=== PATIENT | female | born 1950 | race Caucasian/White ===

== ENCOUNTER 2024-11-10 13:13 | Inpatient (IN) | payer BC ==
[~2024-11-10] VITALS: Ht 147.3 cm; Wt 75.6 kg
[2024-11-10 14:31] VITALS: BP 135/84; PULSE 67; RESP 12; TEMP 98.2; O2SAT 94
[2024-11-10 15:38] VITALS: RESP 12; O2SAT 94
[2024-11-10] MEDS ORDERED: QUET300T2 PO (16:43)
[2024-11-10 19:00] VITALS: RESP 20; O2SAT 94
[2024-11-10 20:00] VITALS: BP 139/80; PULSE 79; RESP 20; TEMP 97.7; O2SAT 94
[2024-11-10] MEDS ORDERED: quetiapine 100mg tablet PO SCH ×2 (20:00→21:00)
[2024-11-10] MEDS ORDERED: ALPRAZolam 0.5mg tablet PO SCH (21:00)
[2024-11-10] MEDS ORDERED: QUEtiapine 25mg tablet PO SCH (21:00)
[2024-11-10] MEDS: quetiapine 100mg tablet PO SCH (23:05)
[2024-11-10] MEDS: gabapentin 300mg capsule PO SCH (23:22)
[2024-11-10] MEDS: divalproex sod 250mg ER (24-hour) tablet PO SCH (23:22)
[2024-11-10] MEDS: ALPRAZolam 0.5mg tablet PO SCH (23:23)
[2024-11-11] MEDS: levoTHYROXINE 75mcg tablet PO SCH (07:00)
[2024-11-11 07:32] VITALS: BP 132/64; PULSE 70; RESP 18; TEMP 97.4; O2SAT 91
[2024-11-11 07:59] VITALS: RESP 18; O2SAT 91
[2024-11-11] MEDS: HYDROchlorothiazide 25mg tablet PO SCH (08:00)
[2024-11-11] MEDS: divalproex 250mg tablet, delayed-release PO SCH (08:00)
[2024-11-11] MEDS: famotidine 20mg tablet PO SCH (08:00)
[2024-11-11] MEDS: venlafaxine XR 75mg capsule (Q24H) PO SCH (08:00)
[2024-11-11] MEDS ORDERED: magnesium hydroxide 30ml (MOM) UD suspension PO PRN (08:00)
[2024-11-11] MEDS ORDERED: acetaminophen 325mg tablet PO PRN ×2 (08:00)
[2024-11-11] MEDS ORDERED: venlafaxine XR 75mg capsule (Q24H) PO SCH (08:00)
[2024-11-11] MEDS: quetiapine 100mg tablet PO SCH (08:00)
[2024-11-11 19:00] VITALS: RESP 18; TEMP 97.8; O2SAT 93
[2024-11-11] MEDS: OLANZAPINE 5 MG TABLET PO SCH (21:00)
[2024-11-12] MEDS: QUEtiapine 25mg tablet PO ONE (03:58)
[2024-11-12] MEDS: loperamide 2mg capsule PO PRN (03:59)
[2024-11-12] MEDS: ibuprofen 200mg tablet PO PRN (03:59)
[2024-11-12] MEDS ORDERED: hydrOXYzine 25 MG tablet PO ONE (04:10)
[2024-11-12 07:00] VITALS: RESP 18; O2SAT 96
[2024-11-12 08:00] VITALS: BP 108/80; PULSE 73; RESP 18; TEMP 96.3; O2SAT 96
[2024-11-12 08:17] LABS: BASOPHILS % (AUTO) 0.6 % (0-1); EOSINOPHILS # (AUTO) 0.1 X10'3 (0-0.9); EOSINOPHILS % (AUTO) 1.2 % (0-6); HEMATOCRIT 35.2 % (35.0-45.0); HEMOGLOBIN 11.8 g/dl (12.0-16.0); LYMPHOCYTES # (AUTO) 0.9 X10'3 (1.1-4.8); LYMPHOCYTES % (AUTO) 13.5 % (21-51); MEAN CORPUSCULAR HEMOGLOBIN 31.6 PG (27.0-31.0); MEAN CORPUSCULAR HGB CONC 33.6 g/dL (33.0-36.5); MEAN CORPUSCULAR VOLUME 94.1 FL (78-98); MEAN PLATELET VOLUME 7.3 FL (7.4-10.4); MONOCYTES # (AUTO) 0.8 X10'3 (0-0.9); MONOCYTES % (AUTO) 11.4 % (2-12); NEUTROPHILS # (AUTO) 4.9 X10'3 (1.8-7.7); NEUTROPHILS % (AUTO) 73.3 % (42-75); PLATELET COUNT 185 X10'3 (140-440); RED BLOOD COUNT 3.75 X10'6 (4.20-5.60); RED CELL DISTRIBUTION WIDTH 15.5 % (11.5-14.5); WHITE BLOOD COUNT 6.7 X10'3 (4.5-11.0)
[2024-11-12 08:43] LABS: ALBUMIN 3.1 G/DL (3.4-5.0); ANION GAP 6 (8-16); BLOOD UREA NITROGEN 35 MG/DL (7-18); BUN/CREATININE RATIO 40.2 (10.0-20.0); CALCIUM 8.9 MG/DL (8.5-10.1); CHLORIDE 105 MMOL/L (99-107); CHOL/HDL RATIO 2.2 (0.00-4.99); CHOLESTEROL 192 MG/DL (0-200); CREATININE 0.87 MG/DL (0.40-0.90); GLUCOSE 116 MG/DL (70-104); HDL CHOLESTEROL 89 MG/DL (35-60); LDL CHOLESTEROL 78 MG/DL (50-100); POTASSIUM 4.2 MMOL/L (3.5-5.1); SODIUM 139 MMOL/L (135-145); THYROID STIMULATING HORMONE 2.11 ulU/ml (0.34-4.50); TOTAL CARBON DIOXIDE 27.6 MMOL/L (24-32); TRIGLYCERIDES 212 MG/DL (20-135); eCRCL 36 ML/MIN; eGFR 63 ML/MIN
[2024-11-12 09:05] LABS: HEMOGLOBIN A1C 5.6 % (4.5-6.2)
[2024-11-12 19:00] VITALS: BP 156/63; PULSE 79; RESP 16; TEMP 98.2; O2SAT 95
[2024-11-12] MEDS: traZODone 50mg tablet PO SCH (20:42)
[2024-11-12] MEDS: mag hydrox/Alum hydrox/simeth 30ml oral suspension PO PRN (21:47)
[2024-11-12 23:15] VITALS: RESP 16; O2SAT 95
[2024-11-13 07:00] VITALS: RESP 14; O2SAT 95
[2024-11-13 08:00] VITALS: BP 147/77; PULSE 60; RESP 14; TEMP 96.7; O2SAT 95
[2024-11-13 19:00] VITALS: RESP 16; O2SAT 92
[2024-11-13 19:50] VITALS: BP 166/78; PULSE 76; RESP 16; TEMP 97.1; O2SAT 92
[2024-11-13] MEDS: OLANZapine 5mg rapidly disint. tablet PO ONE (22:29)
[2024-11-14 07:00] VITALS: RESP 14; O2SAT 96
[2024-11-14 08:00] VITALS: BP 142/62; PULSE 71; RESP 14; TEMP 97.8; O2SAT 96
[2024-11-14] MEDS: OLANZapine 2.5MG tablet PO ONE (13:30)
[2024-11-14] MEDS: LORazepam 1 MG tablet PO ONE (13:30)
[2024-11-14] MEDS: LORazepam 2 mg/ml vial IM ONE (15:43)
[2024-11-14] MEDS: diphenhydrAMINE 50 mg/ml inj IM ONE (15:44)
[2024-11-14] MEDS: haloperidol lactate 5mg/ml inj IM ONE (15:44)
[2024-11-14] MEDS: LORazepam 2 mg/ml vial ONE (16:12)
[2024-11-14] MEDS: diphenhydrAMINE 50 mg/ml inj ONE (16:13)
[2024-11-14] MEDS: divalproex 250mg tablet, delayed-release PO SCH (22:53)
[2024-11-15 07:00] VITALS: BP 165/73; PULSE 73; RESP 12; TEMP 98.5; O2SAT 92
[2024-11-15 19:31] VITALS: BP 146/90; PULSE 72; RESP 18; TEMP 97.2; O2SAT 96
[2024-11-15] MEDS: HYDROcodone/acetaminophen 10/325mg tab PO PRN (20:48)
[2024-11-16 07:00] VITALS: BP 151/79; PULSE 70; RESP 16; TEMP 97.8; O2SAT 95
[2024-11-16 19:00] VITALS: RESP 18; O2SAT 92
[2024-11-16 19:27] VITALS: BP 141/73; PULSE 79; RESP 18; TEMP 98.1; O2SAT 92
[2024-11-17 07:00] VITALS: RESP 12; O2SAT 98
[2024-11-17 08:00] VITALS: BP 156/93; PULSE 85; RESP 12; TEMP 98.5; O2SAT 98
[2024-11-17] MEDS: OLANZapine 5mg rapidly disint. tablet PO ONE (13:55)
[2024-11-17 19:00] VITALS: RESP 20; O2SAT 93
[2024-11-17 20:00] VITALS: BP 153/90; PULSE 80; RESP 20; TEMP 98.1; O2SAT 93
[2024-11-17] MEDS: venlafaxine XR 75mg capsule (Q24H) PO SCH (20:00)
[2024-11-17] MEDS: OLANZapine 5mg rapidly disint. tablet PO SCH (21:00)
[2024-11-17] MEDS: QUEtiapine 25mg tablet PO ONE (21:10)
[2024-11-17] MEDS: quetiapine 100mg tablet PO ONE (21:16)
[2024-11-18 04:28] VITALS: RESP 16
[2024-11-18 04:29] VITALS: RESP 16
[2024-11-18] MEDS: LORazepam 2 mg/ml vial ONE (04:31)
[2024-11-18] MEDS: haloperidol lactate 5mg/ml inj ONE (04:32)
[2024-11-18] MEDS: diphenhydrAMINE 50 mg/ml inj ONE (04:32)
[2024-11-18 07:00] VITALS: RESP 16; O2SAT 96
[2024-11-18 08:00] VITALS: BP 168/87; PULSE 68; RESP 16; TEMP 96.3; O2SAT 96
[2024-11-18 19:00] VITALS: RESP 18
[2024-11-18 19:23] VITALS: BP 153/77; PULSE 76; RESP 18; TEMP 98.7; O2SAT 92
[2024-11-18] MEDS: gabapentin 300mg capsule PO SCH (20:06)
[2024-11-18] MEDS: guaiFENesin 200 MG/10 ML oral syrup UD cup PO PRN (22:56)
[2024-11-19 07:00] VITALS: RESP 12; O2SAT 96
[2024-11-19 08:00] VITALS: BP 151/81; PULSE 78; RESP 12; TEMP 97.9; O2SAT 96
[2024-11-19 08:53] LABS: CHOL/HDL RATIO 2.1 (0.00-4.99); CHOLESTEROL 167 MG/DL (0-200); HDL CHOLESTEROL 78 MG/DL (35-60); LDL CHOLESTEROL 65 MG/DL (50-100); TRIGLYCERIDES 60 MG/DL (20-135)
[2024-11-19 19:00] VITALS: RESP 17; O2SAT 97
[2024-11-19] MEDS: guaiFENesin 200 MG/10 ML oral syrup UD cup PO ONE (19:56)
[2024-11-19 20:00] VITALS: BP 140/80; PULSE 86; RESP 17; TEMP 98; O2SAT 97
[2024-11-20] MEDS: guaiFENesin 200 MG/10 ML oral syrup UD cup PO PRN (02:14)
[2024-11-20 07:00] VITALS: RESP 16; O2SAT 95
[2024-11-20 08:00] VITALS: BP 180/88; PULSE 81; RESP 16; TEMP 98; O2SAT 95
[2024-11-20 19:00] VITALS: RESP 16; O2SAT 92
[2024-11-20 19:41] VITALS: BP 171/80; PULSE 73; RESP 16; TEMP 98.4; O2SAT 92
[2024-11-20] MEDS: sennosides/docusate sodium tablet PO SCH (20:26)
[2024-11-21 07:00] VITALS: RESP 16; O2SAT 94
[2024-11-21 07:43] VITALS: BP 180/82; PULSE 75; RESP 16; TEMP 97.9; O2SAT 94
[2024-11-21] MEDS: losartan 50mg tablet PO SCH (08:18)
[2024-11-21 11:51] VITALS: BP 131/72; PULSE 76
[2024-11-21 19:00] VITALS: RESP 18; O2SAT 93
[2024-11-21 20:00] VITALS: BP 155/84; PULSE 82; RESP 18; TEMP 98.2; O2SAT 93
[2024-11-22 07:00] VITALS: BP 144/76; PULSE 73; RESP 16; TEMP 97.6; O2SAT 94
[2024-11-22] MEDS: haloperidol 5mg tablet PO ONE (11:57)
[2024-11-22 19:00] VITALS: RESP 22; O2SAT 94
[2024-11-22 20:00] VITALS: BP 170/89; PULSE 94; RESP 22; TEMP 97.6; O2SAT 94
[2024-11-22] MEDS: haloperidol 5mg tablet PO SCH (21:00)
[2024-11-23 07:00] VITALS: RESP 16; O2SAT 92
[2024-11-23 08:00] VITALS: BP 125/75; PULSE 75; RESP 16; TEMP 97.4; O2SAT 92
[2024-11-23] MEDS: haloperidol 5mg tablet PO SCH (08:25)
[2024-11-23 19:00] VITALS: RESP 14; O2SAT 93
[2024-11-23 20:00] VITALS: BP 128/59; PULSE 67; RESP 14; TEMP 98.2; O2SAT 93
[2024-11-23] MEDS: benzonatate 100mg capsule PO PRN (20:43)
[2024-11-24 07:00] VITALS: RESP 18; O2SAT 92
[2024-11-24 08:00] VITALS: BP 126/71; PULSE 72; RESP 18; TEMP 97.2; O2SAT 92
[2024-11-24] MEDS: LORazepam 1 MG tablet PO ONE (16:12)
[2024-11-24 19:00] VITALS: RESP 14
[2024-11-24 20:00] VITALS: BP 107/74; PULSE 74; RESP 14; TEMP 98.2; O2SAT 91
[2024-11-25 07:30] VITALS: BP 168/90; PULSE 60; RESP 18; TEMP 96.4; O2SAT 93
[2024-11-25 08:00] VITALS: RESP 18
[2024-11-25 19:00] VITALS: RESP 20
[2024-11-25 19:30] VITALS: PULSE 70; RESP 16; O2SAT 96
[2024-11-25] MEDS: budesonide 0.5mg/2ml UD nebule IH SCH (19:30)
[2024-11-25 19:35] VITALS: PULSE 71; RESP 16
[2024-11-25 20:00] VITALS: BP 142/74; PULSE 60; RESP 20; TEMP 98.8; O2SAT 90
[2024-11-26 07:30] VITALS: BP 167/98; PULSE 16; RESP 16; TEMP 97.4; O2SAT 96
[2024-11-26 08:00] VITALS: RESP 16; O2SAT 96
[2024-11-26 09:25] VITALS: PULSE 84; RESP 16; O2SAT 98
[2024-11-26 09:30] VITALS: PULSE 81; RESP 16
[2024-11-26 19:00] VITALS: RESP 15; O2SAT 93
[2024-11-26 20:00] VITALS: BP 170/85; PULSE 93; RESP 15; TEMP 98.2; O2SAT 93
[2024-11-27 07:30] VITALS: BP 174/96; PULSE 77; RESP 14; TEMP 97.6; O2SAT 91
[2024-11-27 08:00] VITALS: RESP 14; O2SAT 91
[2024-11-27 19:00] VITALS: RESP 20; O2SAT 97
[2024-11-27 19:34] VITALS: BP 140/86; PULSE 88; RESP 20; TEMP 98.7; O2SAT 93
[2024-11-27] MEDS: OLANZapine 5mg rapidly disint. tablet PO ONE (19:55)
[2024-11-27] MEDS: diphenhydrAMINE 50 mg/ml inj IM ONE (22:21)
[2024-11-27] MEDS: haloperidol lactate 5mg/ml inj IM ONE (22:22)
[2024-11-27] MEDS: LORazepam 2 mg/ml vial IM ONE (22:22)
[2024-11-28] VITALS (7 sets, daily range): BP systolic 132–174; BP diastolic 71–85; PULSE 67–84; RESP 14–20; TEMP 97.2–97.6; O2SAT 92–96
[2024-11-28] MEDS: albuterol 2.5 MG/3 ML nebule NEB PRN (19:58)
[2024-11-28] MEDS: amLODIPine 5mg tablet PO ONE (21:53)
[2024-11-29] VITALS (8 sets, daily range): BP systolic 125–157; BP diastolic 50–74; PULSE 74–107; RESP 17–20; TEMP 97.3–97.9; O2SAT 89–94
[2024-11-30 07:00] VITALS: RESP 16; O2SAT 92
[2024-11-30 08:00] VITALS: BP 132/66; PULSE 77; RESP 16; TEMP 97.3; O2SAT 92
[2024-11-30 09:47] VITALS: PULSE 81; RESP 18; O2SAT 89
[2024-11-30 09:55] VITALS: PULSE 88; RESP 16
[2024-11-30 19:00] VITALS: RESP 16; O2SAT 94
[2024-11-30 20:00] VITALS: BP 124/73; PULSE 69; RESP 16; TEMP 97.3; O2SAT 94
[2024-11-30] MEDS: nystatin 15 GM powder TP SCH (20:00)
[2024-12-01] VITALS (7 sets, daily range): BP systolic 155–176; BP diastolic 68–83; PULSE 75–93; RESP 15–20; TEMP 96.7–97.8; O2SAT 92–93
[2024-12-02 07:30] VITALS: BP 151/82; PULSE 93; RESP 18; TEMP 96.7
[2024-12-02 08:00] VITALS: RESP 18; O2SAT 93
[2024-12-02 18:20] VITALS: RESP 18; O2SAT 93
[2024-12-02 20:00] VITALS: BP 182/83; PULSE 87; RESP 20; TEMP 98.1; O2SAT 93
[2024-12-03] VITALS (8 sets, daily range): BP systolic 115–151; BP diastolic 74–116; PULSE 70–93; RESP 12–24; TEMP 97.1–98.1; O2SAT 92–94
[2024-12-03 07:54] LABS: BASOPHILS # (AUTO) 0.1 X10'3 (0-0.2); BASOPHILS % (AUTO) 0.6 % (0-1); EOSINOPHILS # (AUTO) 0.1 X10'3 (0-0.9); EOSINOPHILS % (AUTO) 1.5 % (0-6); HEMATOCRIT 37.7 % (35.0-45.0); HEMOGLOBIN 12.9 g/dl (12.0-16.0); LYMPHOCYTES % (AUTO) 10.7 % (21-51); MEAN CORPUSCULAR HEMOGLOBIN 31.7 PG (27.0-31.0); MEAN CORPUSCULAR HGB CONC 34.3 g/dL (33.0-36.5); MEAN CORPUSCULAR VOLUME 92.5 FL (78-98); MEAN PLATELET VOLUME 6.8 FL (7.4-10.4); MONOCYTES # (AUTO) 0.9 X10'3 (0-0.9); MONOCYTES % (AUTO) 10.1 % (2-12); NEUTROPHILS % (AUTO) 77.1 % (42-75); PLATELET COUNT 377 X10'3 (140-440); RED BLOOD COUNT 4.08 X10'6 (4.20-5.60); RED CELL DISTRIBUTION WIDTH 14.9 % (11.5-14.5); WHITE BLOOD COUNT 9.1 X10'3 (4.5-11.0)
[2024-12-03 08:13] LABS: ALBUMIN 3.4 G/DL (3.4-5.0); ANION GAP 9 (8-16); BLOOD UREA NITROGEN 33 MG/DL (7-18); CALCIUM 9.7 MG/DL (8.5-10.1); CHLORIDE 104 MMOL/L (99-107); CREATININE 0.66 MG/DL (0.40-0.90); GLUCOSE 108 MG/DL (70-104); POTASSIUM 4.4 MMOL/L (3.5-5.1); SODIUM 141 MMOL/L (135-145); eCRCL 48 ML/MIN; eGFR 87 ML/MIN
[2024-12-03] MEDS: guaiFENesin ER 600mg tablet PO SCH (20:26)
[2024-12-04 07:00] VITALS: RESP 18; O2SAT 92
[2024-12-04 08:00] VITALS: BP 169/75; PULSE 68; RESP 18; TEMP 97.4; O2SAT 92
[2024-12-04 19:00] VITALS: RESP 16; O2SAT 93
[2024-12-04 20:00] VITALS: BP 143/76; PULSE 90; RESP 16; TEMP 97.8; O2SAT 93
[2024-12-05] VITALS (7 sets, daily range): BP systolic 137–160; BP diastolic 58–76; PULSE 73–86; RESP 16–20; TEMP 96.9–97.8; O2SAT 94–99
[2024-12-06 07:00] VITALS: RESP 16; O2SAT 92
[2024-12-06 08:00] VITALS: BP 131/59; PULSE 71; RESP 16; TEMP 98.2; O2SAT 92
[2024-12-06 09:05] VITALS: PULSE 81; RESP 20; O2SAT 93
[2024-12-06 09:13] VITALS: PULSE 80; RESP 18
[2024-12-06 19:00] VITALS: RESP 18; O2SAT 93
[2024-12-06 20:16] VITALS: BP 109/82; PULSE 80; RESP 18; TEMP 98.7; O2SAT 93
[2024-12-07 07:41] VITALS: BP 140/92; PULSE 72; RESP 14; TEMP 97.2; O2SAT 93
[2024-12-07 11:46] VITALS: RESP 14; O2SAT 93
[2024-12-07 19:00] VITALS: RESP 16; O2SAT 94
[2024-12-07 20:00] VITALS: BP 142/64; PULSE 76; RESP 18; TEMP 98; O2SAT 94
[2024-12-08 07:52] VITALS: BP 164/89; PULSE 95; RESP 18; TEMP 96.5; O2SAT 93
[2024-12-08 07:53] VITALS: RESP 18; O2SAT 93
[2024-12-08 19:00] VITALS: RESP 14; O2SAT 93
[2024-12-08 19:47] LABS: BASOPHILS # (AUTO) 0.1 X10'3 (0-0.2); BASOPHILS % (AUTO) 0.7 % (0-1); EOSINOPHILS # (AUTO) 0.1 X10'3 (0-0.9); EOSINOPHILS % (AUTO) 1.1 % (0-6); HEMATOCRIT 35.8 % (35.0-45.0); HEMOGLOBIN 11.8 g/dl (12.0-16.0); LYMPHOCYTES # (AUTO) 1.2 X10'3 (1.1-4.8); LYMPHOCYTES % (AUTO) 16.3 % (21-51); MEAN CORPUSCULAR HEMOGLOBIN 30.9 PG (27.0-31.0); MEAN CORPUSCULAR HGB CONC 32.9 g/dL (33.0-36.5); MEAN PLATELET VOLUME 6.9 FL (7.4-10.4); MONOCYTES # (AUTO) 0.8 X10'3 (0-0.9); NEUTROPHILS # (AUTO) 5.4 X10'3 (1.8-7.7); NEUTROPHILS % (AUTO) 71.9 % (42-75); PLATELET COUNT 287 X10'3 (140-440); RED BLOOD COUNT 3.81 X10'6 (4.20-5.60); RED CELL DISTRIBUTION WIDTH 15.4 % (11.5-14.5); WHITE BLOOD COUNT 7.5 X10'3 (4.5-11.0)
[2024-12-08 19:59] LABS: ALANINE AMINOTRANSFERASE 18 U/L (12-78); ALBUMIN/GLOBULIN RATIO 0.9 (1.1-1.5); ALKALINE PHOSPHATASE 133 IU/L (46-116); ANION GAP 8 (8-16); ASPARTATE AMINO TRANSFERASE 17 U/L (10-37); BILIRUBIN,TOTAL 0.2 MG/DL (0.1-1.0); BLOOD UREA NITROGEN 40 MG/DL (7-18); BUN/CREATININE RATIO 52.6 (10.0-20.0); CALCIUM 8.9 MG/DL (8.5-10.1); CHLORIDE 105 MMOL/L (99-107); CREATININE 0.76 MG/DL (0.40-0.90); GLUCOSE 111 MG/DL (70-104); POTASSIUM 4.7 MMOL/L (3.5-5.1); SODIUM 141 MMOL/L (135-145); TOTAL CARBON DIOXIDE 28.3 MMOL/L (24-32); TOTAL PROTEIN 6.5 G/DL (6.4-8.2); eCRCL 41 ML/MIN; eGFR 74 ML/MIN
[2024-12-08 20:07] LABS: PRO BRAIN NATRIURETIC PEPTIDE 385 PG/ML (0-450)
[2024-12-08 20:39] VITALS: BP 122/70; PULSE 73; RESP 12; TEMP 98.4; O2SAT 93
[2024-12-09 07:30] VITALS: BP 128/86; PULSE 70; RESP 14; TEMP 96.3; O2SAT 95
[2024-12-09 19:00] VITALS: RESP 18; O2SAT 93
[2024-12-09 20:00] VITALS: BP 135/93; PULSE 74; RESP 18; TEMP 98.2; O2SAT 93
[2024-12-10 07:30] VITALS: BP 173/91; PULSE 76; RESP 12; TEMP 97; O2SAT 91
[2024-12-10 08:35] VITALS: PULSE 74; RESP 16; O2SAT 94
[2024-12-10 18:30] VITALS: RESP 12; O2SAT 91
[2024-12-10 18:55] VITALS: BP 130/79; PULSE 79; RESP 17; TEMP 97.2; O2SAT 92
[2024-12-10 19:02] VITALS: BP 130/79; PULSE 79; RESP 17; TEMP 97.2; O2SAT 92
[2024-12-10 21:07] VITALS: PULSE 82; RESP 16; O2SAT 95
[2024-12-11 07:30] VITALS: BP 150/83; PULSE 73; RESP 13; TEMP 96.7; O2SAT 94
[2024-12-11 17:16] VITALS: PULSE 77; RESP 16; O2SAT 95
[2024-12-11 17:22] VITALS: PULSE 81; RESP 16
[2024-12-11 19:00] VITALS: RESP 18; O2SAT 92
[2024-12-11 20:00] VITALS: BP 131/74; PULSE 82; RESP 18; TEMP 96.7; O2SAT 92
[2024-12-11] MEDS: losartan 50mg tablet PO SCH (20:19)
[2024-12-12] MEDS: amoxicillin 250mg capsule PO SCH (00:32)
[2024-12-12 07:00] VITALS: BP 177/86; PULSE 78; RESP 17; TEMP 97.6; O2SAT 92
[2024-12-12 19:00] VITALS: RESP 18; O2SAT 94
[2024-12-12 20:00] VITALS: BP 140/67; PULSE 79; RESP 18; TEMP 98; O2SAT 94
[2024-12-13 07:47] VITALS: BP 173/80; PULSE 75; RESP 16; TEMP 96.8; O2SAT 97
[2024-12-13 08:00] VITALS: RESP 16; O2SAT 97
[2024-12-13] MEDS ORDERED: HYDR-3972 PO (11:06)
[2024-12-13] MEDS ORDERED: LOSA50TA64 PO (11:06)
[2024-12-13] MEDS ORDERED: TRAZ-251 PO (11:06)
[2024-12-13] MEDS ORDERED: LEVO75TA7 PO (11:06)
[2024-12-13] MEDS ORDERED: HALO5TAB PO (11:06)
[2024-12-13] MEDS ORDERED: QUET300T20 PO (11:06)
[2024-12-13] MEDS ORDERED: SENN-283 PO (11:06)
[2024-12-13] MEDS ORDERED: ALPR0.5T9 PO (11:06)
[2024-12-13] MEDS ORDERED: gabapentin capsule PO (11:06)
[2024-12-13] MEDS ORDERED: FAMO20TA8 PO (11:06)
[2024-12-13] MEDS ORDERED: DIVA125C10 PO (11:06)
[2024-12-13] MEDS ORDERED: VENL75CA61 PO (11:06)
[2024-12-13] MEDS ORDERED: mag hydrox/Alum hydrox/simeth 30ml oral suspension PO PRN (14:50)
[2024-12-13] MEDS ORDERED: loperamide 2mg capsule PO PRN (14:50)
[2024-12-13] MEDS ORDERED: magnesium hydroxide 30ml (MOM) UD suspension PO PRN (14:50)
[2024-12-13] MEDS ORDERED: acetaminophen 325mg tablet PO PRN ×2 (14:50)
[2024-12-13] MEDS: venlafaxine XR 75mg capsule (Q24H) PO ONE (16:01)
[2024-12-13 19:00] VITALS: BP 143/79; PULSE 78; RESP 18; TEMP 97.1; O2SAT 94
[2024-12-13 20:14] VITALS: PULSE 71; RESP 16; O2SAT 95
[2024-12-13 20:23] LABS: BASOPHILS # (AUTO) 0.1 X10'3 (0-0.2); BASOPHILS % (AUTO) 0.7 % (0-1); EOSINOPHILS # (AUTO) 0.1 X10'3 (0-0.9); EOSINOPHILS % (AUTO) 1.3 % (0-6); HEMATOCRIT 34.6 % (35.0-45.0); HEMOGLOBIN 11.6 g/dl (12.0-16.0); LYMPHOCYTES # (AUTO) 1.1 X10'3 (1.1-4.8); MEAN CORPUSCULAR HEMOGLOBIN 31.4 PG (27.0-31.0); MEAN CORPUSCULAR HGB CONC 33.5 g/dL (33.0-36.5); MEAN CORPUSCULAR VOLUME 93.5 FL (78-98); MEAN PLATELET VOLUME 6.7 FL (7.4-10.4); MONOCYTES # (AUTO) 0.8 X10'3 (0-0.9); MONOCYTES % (AUTO) 10.8 % (2-12); NEUTROPHILS # (AUTO) 5.5 X10'3 (1.8-7.7); NEUTROPHILS % (AUTO) 73.2 % (42-75); PLATELET COUNT 264 X10'3 (140-440); WHITE BLOOD COUNT 7.5 X10'3 (4.5-11.0)
[2024-12-13 20:33] LABS: ALBUMIN 3.1 G/DL (3.4-5.0); ANION GAP 7 (8-16); BLOOD UREA NITROGEN 43 MG/DL (7-18); BUN/CREATININE RATIO 57.3 (10.0-20.0); CALCIUM 8.9 MG/DL (8.5-10.1); CHLORIDE 103 MMOL/L (99-107); CREATININE 0.75 MG/DL (0.40-0.90); GLUCOSE 96 MG/DL (70-104); POTASSIUM 5.3 MMOL/L (3.5-5.1); SODIUM 140 MMOL/L (135-145); TOTAL CARBON DIOXIDE 29.8 MMOL/L (24-32); eCRCL 41 ML/MIN; eGFR 75 ML/MIN
[2024-12-14 07:15] VITALS: BP 132/86; PULSE 78; RESP 16; TEMP 97.9; O2SAT 92
[2024-12-14 08:00] VITALS: RESP 16; O2SAT 92
[2024-12-14] MEDS: venlafaxine XR 75mg capsule (Q24H) PO SCH (10:46)
[2024-12-14 15:20] LABS: ALANINE AMINOTRANSFERASE 22 U/L (12-78); ALBUMIN 3.1 G/DL (3.4-5.0); ALBUMIN/GLOBULIN RATIO 0.8 (1.1-1.5); ALKALINE PHOSPHATASE 138 IU/L (46-116); ANION GAP 8 (8-16); ASPARTATE AMINO TRANSFERASE 14 U/L (10-37); BILIRUBIN,TOTAL 0.2 MG/DL (0.1-1.0); BLOOD UREA NITROGEN 37 MG/DL (7-18); BUN/CREATININE RATIO 63.8 (10.0-20.0); CALCIUM 9.1 MG/DL (8.5-10.1); CHLORIDE 105 MMOL/L (99-107); CREATININE 0.58 MG/DL (0.40-0.90); GLUCOSE 87 MG/DL (70-104); POTASSIUM 5.3 MMOL/L (3.5-5.1); SODIUM 141 MMOL/L (135-145); TOTAL CARBON DIOXIDE 28.5 MMOL/L (24-32); TOTAL PROTEIN 6.8 G/DL (6.4-8.2); eCRCL 53 ML/MIN; eGFR > 90 ML/MIN
[2024-12-14 16:22] VITALS: PULSE 86; RESP 20; O2SAT 96
[2024-12-14 18:43] VITALS: RESP 16; O2SAT 92
[2024-12-14] MEDS: amoxicillin 250mg capsule PO SCH (19:02)
[2024-12-14 19:14] VITALS: BP 152/77; PULSE 89; RESP 18; TEMP 96.8; O2SAT 92
[2024-12-14 20:21] VITALS: PULSE 81; RESP 18; O2SAT 95
[2024-12-15 07:00] VITALS: RESP 12; O2SAT 91
[2024-12-15 08:36] VITALS: BP 110/87; PULSE 80; RESP 12; TEMP 97.5; O2SAT 91
[2024-12-15 13:53] LABS: CHOL/HDL RATIO 2.6 (0.00-4.99); CHOLESTEROL 212 MG/DL (0-200); HDL CHOLESTEROL 81 MG/DL (35-60); LDL CHOLESTEROL 87 MG/DL (50-100); TRIGLYCERIDES 196 MG/DL (20-135)
[2024-12-15 16:32] LABS: BILIRUBIN,URINE NEGATIVE (Neg); CLARITY,URINE CLEAR (Clear); COLOR,URINE YELLOW (Yellow); GLUCOSE, URINE NEGATIVE (Neg); KETONES,URINE NEGATIVE (Neg); LEUKOCYTE ESTERASE ,URINE NEGATIVE (Neg); NITRITES, URINE NEGATIVE (Neg); OCCULT BLOOD,URINE NEGATIVE (Neg); PROTEIN,URINE NEGATIVE (Neg); UROBILINOGEN,URINE 0.2 E.U/dL (0.2-1.0)
[2024-12-15 16:34] LABS: UA COLLECTION TYPE NON-SPECIFIED
[2024-12-15 19:00] VITALS: RESP 20; O2SAT 96
[2024-12-15 19:23] VITALS: BP 132/65; PULSE 80; RESP 20; TEMP 97.2; O2SAT 96
[2024-12-15 20:02] VITALS: PULSE 80; RESP 18; O2SAT 95
[2024-12-15] MEDS: amLODIPine 5mg tablet PO SCH (20:18)
[2024-12-16 07:00] VITALS: RESP 18; O2SAT 94
[2024-12-16 07:47] VITALS: PULSE 88; RESP 18; O2SAT 92
[2024-12-16 08:00] VITALS: BP 136/61; PULSE 85; RESP 18; TEMP 96.8; O2SAT 94
[2024-12-16 19:00] VITALS: RESP 17; O2SAT 94
[2024-12-16 20:00] VITALS: BP 116/74; PULSE 79; RESP 17; TEMP 97.1; O2SAT 94
[2024-12-16 22:06] VITALS: RESP 17; O2SAT 94
[2024-12-17 07:00] VITALS: RESP 16; O2SAT 91
[2024-12-17 08:00] VITALS: BP 133/73; PULSE 83; RESP 16; TEMP 97; O2SAT 91
[2024-12-17] MEDS ORDERED: NOR5T PO (08:45)
== END 2024-12-17 10:29 | disposition home or self-care (01) | DRG 885 ==
LOC: ADULT MH 13:35
PROVIDERS: ADMIT Psychiatry & Neurology Psychiatry; ATTEND Psychiatry & Neurology Psychiatry
PROC: GZHZZZZ Group Psychotherapy (ICD-10-PCS; principal; 2024-11-10)
PROC: GZ51ZZZ Individual Psychotherapy, Behavioral (ICD-10-PCS; 2024-11-10)
DX: F29 Unspecified psychosis not due to a substance or known physiological condition (principal); R45.851 Suicidal ideations; I42.9 Cardiomyopathy, unspecified; F03.92 Unspecified dementia, unspecified severity, with psychotic disturbance; F41.9 Anxiety disorder, unspecified; I10 Essential (primary) hypertension; J06.9 Acute upper respiratory infection, unspecified; M54.50 Low back pain, unspecified; Z88.1 Allergy status to other antibiotic agents; Z79.899 Other long term (current) drug therapy; Z91.148 Patient's other noncompliance with medication regimen for other reason
CPT/HCPCS: 36415; 70551; 71045; 71250; 80048; 80053; 80061; 80164; 81003; 83036; 83880; 84132; 84145; 84443; 85025; 85651; 87081; 92508; 92616; 94640; 94760; 97110; 97116; 97161; 97530; A4615; A6250; J1200; J1630; J2060